=== PATIENT | male | born 1980 | race Caucasian/White ===

== ENCOUNTER 2019-10-28 15:56 | Outpatient (CLI) | payer OTHER ==
--- NOTE | 2019-10-28 17:53 | MRI Report ---
Reason: PAIN IN RT KNEE Procedure Date: 10/28/2019 Accession Number: [id number] / [id number] Procedure: MRI - Knee RT W/O CPT Code: Final Report FULL RESULT: EXAM: RIGHT KNEE MRI WITHOUT CONTRAST. EXAM DATE: 10/28/2019 05:25 PM. CLINICAL HISTORY: Pain in right knee. COMPARISON: None. TECHNIQUE: Multiplanar, multisequence T1-weighted and fluid-sensitive sequences of the knee without contrast. Other: None. FINDINGS: Bones: No fractures or subluxations. No marrow edema. No bone lesions. Articular Cartilage: Unremarkable. Medial Meniscus: The medial meniscus is intact. Lateral Meniscus: The lateral meniscus is intact. Cruciate Ligaments: The anterior and posterior cruciate ligaments are intact. Collateral Ligaments: The medial collateral and lateral collateral ligamentous structures are intact. Tendons: The quadriceps, patellar, semimembranosus, and popliteus tendons are unremarkable. Musculature: No edema or fatty atrophy. Other: No effusion. No popliteal cyst. No loose bodies. The medial and lateral retinacula are intact. The subcutaneous tissues and fat pads are unremarkable. IMPRESSION: No MRI abnormalities in the knee. RADIA
== END 2019-10-28 15:57 | disposition home or self-care (01) ==
LOC: DI 15:56
PROVIDERS: ATTEND Student in an Organized Health Care Education/Training Program
DX: M25.561 Pain in right knee (principal)

== ENCOUNTER 2020-10-12 10:49 | Emergency (ER) | payer OTHER ==
--- NOTE | 2020-10-12 11:39 | XRAY Report ---
PROCEDURE: Chest 1 View X-Ray INDICATIONS: Chest Pain TECHNIQUE: One view of the chest was acquired. COMPARISON: None FINDINGS: Surgical changes and devices: None. Lungs and pleura: No pleural effusions or pneumothorax. Lungs are clear. Mediastinum: Mediastinal contours appear normal. Heart size is normal. Bones and chest wall: No suspicious bony lesions. Overlying soft tissues appear unremarkable. IMPRESSION: Mildly reduced inspiratory volume, source of chest pain is not seen. Dominant O Reviewed by: Adrian Feliz MD on 10/12/2020 11:38 AM [facility] Approved by: Adrian Feliz MD on 10/12/2020 11:38 AM PST Station ID: [id number]
[2020-10-12 11:42] LABS: BASOPHILS # (AUTO) 0.1 10^3/uL (0.0-0.1); BASOPHILS % (AUTO) 0.7 %; EOSINOPHILS # (AUTO) 0.3 10^3/uL (0.0-0.7); EOSINOPHILS % (AUTO) 3.8 %; HGB - HEMOGLOBIN 14.8 g/dL (14.0-18.0); LYMPHOCYTES # (AUTO) 2.3 10^3/uL (1.5-3.5); LYMPHOCYTES % (AUTO) 28.5 %; MEAN CORPUSCULAR HEMOGLOBIN 29.9 pg (27.0-31.0); MEAN CORPUSCULAR HGB CONC 33.3 g/dL (32.0-36.0); MEAN CORPUSCULAR VOLUME 89.7 fL (80.0-94.0); MEAN PLATELET VOLUME 9.3 fL (7.4-11.4); MONOCYTES # (AUTO) 0.5 10^3/uL (0.0-1.0); MONOCYTES % (AUTO) 5.9 %; NEUTROPHILS # (AUTO) 4.9 10^3/uL (1.5-6.6); NEUTROPHILS % (AUTO) 60.7 %; PLT - PLATELET COUNT 367 10^3/uL (130-450); RED BLOOD COUNT 4.95 10^6/uL (4.70-6.10); RED CELL DISTRIBUTION WIDTH 12.7 % (12.0-15.0); WHITE BLOOD COUNT 8.1 x10^3/uL (4.8-10.8)
[2020-10-12 11:56] LABS: ALBUMIN 4.6 g/dL (3.2-5.5); ALBUMIN/GLOBULIN RATIO 1.6 (1.0-2.2); BILIRUBIN,TOTAL 0.8 mg/dL (0.2-1.0); CALCIUM 9.4 mg/dL (8.5-10.3); TOTAL PROTEIN 7.4 g/dL (6.7-8.2)
--- NOTE | 2020-10-12 13:05 | ED Physician Documentation ---
History of Present Illness - Stated complaint Stated Complaint: SHOULDER/HEAD PX - Chief complaint Chief Complaint: Cardiac - Additonal information Additional information: 40-year-old male presents to the emergency department for evaluation of chest pressure. He reports that for most of yesterday he did not feel well, he felt fatigued and" swimmy". He began to feel the same way today therefore [place] patient to return to the emergency department for further evaluation. He denies that he has chest pain right now. He describes yesterday's and this a.m. episode as chest pressure with radiation to the left arm. No nausea. He is a non-smoker, no history of diabetes. He does have a history of hypertension for which she was recently taking lisinopril but due to a history of migraines the flight surgeon changed him to propanolol. He states that yesterday his blood pressures were in the 140s to the 160s. His dad did have a significant coronary artery disease history however he was a diabetic. No family history of coronary artery disease in siblings or mom. Review of Systems Constitutional: reports: Fatigue Eyes: reports: Reviewed and negative Ears: reports: Reviewed and negative Nose: reports: Reviewed and negative Throat: reports: Reviewed and negative Cardiac: reports: Chest pain / pressure. denies: Palpitations, Pedal edema, Calf pain Respiratory: reports: Reviewed and negative GI: reports: Reviewed and negative : reports: Reviewed and negative Skin: reports: Reviewed and negative Musculoskeletal: reports: Reviewed and negative Neurologic: reports: Reviewed and negative. denies: Difficulty speaking, Near syncope, Syncope, Seizure Psychiatric: reports: Reviewed and negative PD PAST MEDICAL HISTORY - Allergies Allergies/Adverse Reactions: Allergies Allergy/AdvReac Type Severity Reaction Status Date / Time No Known Drug Allergies Allergy Verified 10/12/20 11:09 PD ED PE EXPANDED - General General: Alert, No acute distress, Well developed/nourished - Neck Neck: Supple w/out meningeal sx. No: Adenopathy - Cardiac Cardiac: Regular Rate, Regular Rhythm. No: Murmur Present, Radial strong equal, Femoral strong equal, Pedal strong equal, Cap refill < 2 sec - Respiratory Respiratory: Clear to ausultation lilibeth. No: Distress, Labored - Abdomen Abdomen: Normal Bowel sounds. No: Tender to palpation - Neuro Neuro: Alert and Oriented X 3, Normal Speech, CNII-XII intact - GCS Motor: Obeys Commands Verbal: Oriented Results - Vitals Vitals: Vital Signs - 24 hr 10/12/20 11:10 Temperature 36.3 C L Heart Rate 66 Respiratory 18 Rate Blood Pressure 152/89 H O2 Saturation 98 Oxygen O2 Source Room air - EKG (time done) 1119 Rate: Rate (enter#) (62) Rhythm: NSR [place]: Normal Intervals: Normal NC Ischemia: ST elevation c/w repol Compare to prior EKG: Old EKG unavailable Computer interpretation: Agree with computer - Labs Labs: Laboratory Tests 10/12/20 10/12/20 10/12/20 11:36 11:36 11:36 WBC 8.1 RBC 4.95 Hgb 14.8 Hct 44.4 MCV 89.7 MCH 29.9 MCHC 33.3 RDW 12.7 Plt Count 367 MPV 9.3 Neut # (Auto) 4.9 Lymph # (Auto) 2.3 [place] # (Auto) 0.5 Eos # (Auto) 0.3 Baso # (Auto) 0.1 Absolute Nucleated RBC 0.00 Nucleated RBC % 0.0 Sodium 140 Potassium 4.5 Chloride 106 Carbon Dioxide 24 Anion Gap 10.0 BUN 14 Creatinine 1.0 Estimated GFR (MDRD) 83 L Glucose 87 Calcium 9.4 Total Bilirubin 0.8 AST 25 ALT 34 Alkaline Phosphatase 104 Troponin I High Sens 2.7 Total Protein 7.4 Albumin 4.6 Globulin 2.8 Albumin/Globulin Ratio 1.6 Lipase 46 - Rads (name of study) cxr Radiology: Final report received (Mildly reduced inspiratory volume, source of chest pain is not seen) PD MEDICAL DECISION MAKING - ED course Complexity details: reviewed results, re-evaluated patient, considered differential, d/w patient ED course: 40-year-old male presents the emergency department for evaluation of fatigue and chest pain that began yesterday. He has no active chest pain while here in the emergency department. He has had no fevers or cough. He did recently change his blood pressure medication from lisinopril to propanolol secondary to history of migraines. On exam today he repairs remarkably well. With nonconcerning vitals. EKG is sinus and consistent with early repole. Chest x-ray does not show any acute focal infiltrates. Patient is not hypoxic and has no complaints of shortness of breath. High-sensitivity troponin is negative. The majority of his lab work is unrevealing. His heart score today is 3 making him low risk for a MACE. I advised patient that he needs close [place] and do recommend outpatient stress test and echocardiogram. We will screen this gentleman for COVID-19 though he is essentially asymptomatic with the exception of reported fatigue. He will remain in quarantine until the results are known Departure - Departure Disposition: 01 Home, Self Care Clinical Impression: Chest pressure Condition: Stable Record reviewed to determine appropriate education?: Yes Comments: Janes I hope that you are feeling better soon. Today your labs, chest x-ray and EKG are all essentially unremarkable. As we discussed does not appear that you are having a heart attack, however with your history of high blood pressure and heart disease in your dad your flight surgeon should arrange for you to have an outpatient echocardiogram and stress test. We are screening you for COVID-19 today. We will not notify you unless the result is positive. You should remain in quarantine until your results are known. You may view the results on the [facility] portal. If you develop chest pain, have uncontrolled vomiting any fainting episodes please return to the ER for a second evaluation
[2020-10-12 13:15] VITALS: BP 126/94
== END 2020-10-12 13:18 | disposition home or self-care (01) ==
LOC: ED 10:49
DX: R07.89 Other chest pain (principal); Z20.828 Contact with and (suspected) exposure to other viral communicable diseases
CPT/HCPCS: 36415; 80053; 83690; 84484; 85025; 93005; 99284

== ENCOUNTER 2020-11-09 09:55 | Outpatient (CLI) | payer OTHER ==
--- NOTE | 2020-11-09 11:47 | MRI Report ---
PROCEDURE: BRAIN W/WO INDICATIONS: MIGRAINE W/AURA CONTRAST: 9 cc Gadavist TECHNIQUE: Noncontrast axial T1 spin echo, axial T2 fast spin echo, sagittal and axial FLAIR, coronal T2 fast sp in echo, axial gradient echo, axial diffusion and ADC through the brain. After the administration of contrast, axial and coronal T1 spin echo with fat saturation through the brain. COMPARISON: None. FINDINGS: Image quality: Excellent. CSF spaces: Basal cisterns are patent. No extra-axial fluid collections. Ventricles are normal in size and shape. Brain: No midline shift. No intracranial bleeds or masses. No abnormal intracranial enhancement. There is cerebral volume loss for age. There are a few tiny FLAIR hyperintensities in the periventric ular white matter, likely early chronic microvascular ischemic change. The brainstem appears normal. Diffusion-weighted images demonstrate no acute ischemic insults. No chronic ischemic insults. Norm al intravascular flow voids are present. Skull and face: Calvarial marrow is normal in signal. Orbits appear normal. Sinuses: Sinuses and mastoids appear clear. IMPRESSION: No intracranial mass lesion, abnormal intracranial enhancement, or other acute finding. No abnormality to explain symptoms. Reviewed by: Oni Nelson MD on 11/09/2020 11:45 AM PST Approved by: Oni Nelson MD on 11/09/2020 11:45 AM PST Station ID: [id number]
== END 2020-11-09 09:56 | disposition home or self-care (01) ==
LOC: DI 09:55
DX: G43.109 Migraine with aura, not intractable, without status migrainosus (principal)
CPT/HCPCS: 70553; A9585

== ENCOUNTER 2020-11-14 20:48 | Emergency (ER) | payer OTHER ==
--- NOTE | 2020-11-14 21:00 | ED Physician Documentation ---
PD HPI LOWER EXT INJURY - Stated complaint Stated Complaint: RT ANKLE INJ - Chief complaint Chief Complaint: Ext Problem - History obtained from History obtained from: Patient - Additional information Additional information: Running yesterday morning and inverted the right ankle with pain and swelling laterally. He is able to walk and bear weight. No other injuries. Review of Systems Constitutional: reports: Reviewed and negative Ears: reports: Reviewed and negative Nose: reports: Reviewed and negative Throat: reports: Reviewed and negative Cardiac: reports: Reviewed and negative PD PAST MEDICAL HISTORY - Past Surgical History Past Surgical History: No - Allergies Allergies/Adverse Reactions: Allergies Allergy/AdvReac Type Severity Reaction Status Date / Time No Known Drug Allergies Allergy Verified 10/12/20 11:09 - Social History Does the pt smoke?: No Smoking Status: Never smoker Does the pt drink ETOH?: No Does the pt have substance abuse?: No - Immunizations Immunizations are current?: Yes - POLST Patient has POLST: No PD ED PE NORMAL - Vitals Vital signs reviewed: Yes - General General: Alert and oriented X 3, No acute distress - Extremities Extremities: Other (He is tender and swollen over both the lateral malleolus and lower a right lateral ATFL. There is significant bruising over the lateral foot. No significant tenderness at the fifth metatarsal nor at the proximal fibula.) - Neuro Neuro: Alert and oriented X 3, Normal speech Results - Vitals Vitals: Vital Signs - 24 hr 11/14/20 20:52 Temperature 36.5 C Heart Rate 72 Respiratory 16 Rate Blood Pressure 155/97 H O2 Saturation 98 Oxygen O2 Source Room air PD MEDICAL DECISION MAKING - ED course ED course: 40-year-old gentleman with isolated 36-hour old right ankle injury from an inversion injury while running. Three-view x-ray of the right ankle interpreted contemporaneously by me is negative for fracture. He is placed in an Aircast. Declined pain medication. Departure - Departure Disposition: 01 Home, Self Care Clinical Impression: Right ankle sprain Qualifiers: Encounter type: initial encounter Involved ligament of ankle: anterior talofibular ligament Qualified Code(s): S93.491A - Sprain of other ligament of right ankle, initial encounter Condition: Good Record reviewed to determine appropriate education?: Yes Instructions: ED Sprain Ankle W X Ray Comments: Recheck with your physician in 1 week if not better. Return for new or worseni ng symptoms. Tylenol or ibuprofen as needed for pain.
[2020-11-14 21:35] VITALS: BP 149/99
--- NOTE | 2020-11-14 21:50 | XRAY Report ---
PROCEDURE: Ankle 3 View RT INDICATIONS: ankle inj TECHNIQUE: 3 views of the ankle were acquired. COMPARISON: None. FINDINGS: Bones: No fractures or dislocations. Ankle mortise is normally aligned. No suspicious bony lesions . Suspect small bone island in the calcaneus. Soft tissues: No tibiotalar joint effusion. Achilles tendon appears normal. IMPRESSION: No acute osseous abnormality. Reviewed by: Manuel Pederson MD on 11/14/2020 9:49 PM [facility] Approved by: Manuel Pederson MD on 11/14/2020 9:49 PM [facility] Station ID: [id number]
== END 2020-11-14 21:37 | disposition home or self-care (01) ==
LOC: ED 20:48
DX: S93.491A Sprain of other ligament of right ankle, initial encounter (principal); X50.1XXA Overexertion from prolonged static or awkward postures, initial encounter; Y93.02 Activity, running
CPT/HCPCS: 99283

== ENCOUNTER 2022-06-29 08:24 | Outpatient (CLI) | payer OTHER ==
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
[2022-06-29 09:33] VITALS: BP 113/76
== END 2022-06-29 08:25 | disposition home or self-care (01) ==
LOC: SC 08:24
PROVIDERS: ATTEND Nurse Practitioner Family
DX: R06.83 Snoring (principal); G47.8 Other sleep disorders; R06.81 Apnea, not elsewhere classified; R51.9 Headache, unspecified; G47.10 Hypersomnia, unspecified; R53.83 Other fatigue; I10 Essential (primary) hypertension; F32.A Depression, unspecified; E66.3 Overweight; Z68.26 Body mass index [BMI] 26.0-26.9, adult; Z87.891 Personal history of nicotine dependence
CPT/HCPCS: 99203; 99212

== ENCOUNTER 2022-07-06 20:38 | Outpatient (CLI) | payer OTHER | END 2022-07-06 20:39 | disposition home or self-care (01) | LOC: SC 20:38 | PROVIDERS: ATTEND Nurse Practitioner Family | DX: G47.33 Obstructive sleep apnea (adult) (pediatric) (principal); Z68.26 Body mass index [BMI] 26.0-26.9, adult | CPT/HCPCS: 95810 ==

== ENCOUNTER 2022-07-19 08:27 | Outpatient (CLI) | payer OTHER ==
[2022-07-19 09:24] VITALS: BP 126/80
--- NOTE | 2022-07-19 09:24 | SLEEP CARE CONSULTATION ---
Information from patient questionnaire entered by Kayla Gordon. I have reviewed and concur with the information entered by Kayla Gordon. This document represents the service I personally performed and the decisions made by , Lorin Garza ARNP. History of Present Illness Service Date and Time: 07/19/2022826 Initial [place] Sleepiness Scale score: 9 (06/28/2022) Current [place] Sleepiness Scale score: 9 (07/19/22) Additional HPI information: BLANKA FAJARDO returns for follow up and results of the recently performed polysomnography. I explained the pathophysiology behind obstructive sleep apnea. We then spent quite a bit of time discussing different treatment options. For mild obstructive sleep apnea, surgery and oral appliance are alternatives to nasal CPAP therapy but in moderate or severe cases, nasal CPAP is the most effective a nd reliable treatment. Because apnea is primarily in supine position, then positional management therapy could be effective. Methods discussed such as positioning with pillows to prevent supine sleep. I reviewed the impact of weight changes on sleep apnea and strongly recommended losing weight. Patient counseled not drink alcohol less than 4 hours before bedtime as it can increase snoring and apnea. Patient was cautioned about risks of drowsy driving until sleepiness symptoms resolve. Patient denies drowsy driving. Sleep Study - Results Type of Sleep Study: Polysomnography (DONE 07/06/22) Prior sleep studies: No Polysomnography/Home Sleep Study results: IMPRESSION: The quality of the study is good. The patient had normal sleep efficiency. The sleep architecture was normal as well. Respiratory monitoring showed mild obstructive sleep apnea-h ypopnea (AHI = 9.5) associated with oxyhemoglobin desaturation and mild hypoxia ([place]oria oxygen saturation of 84%). The respiratory events occurred almost exclusively during supine sleep (supine AHI = 26.5; non-supine = 0.61). Snore was light in intensity. There was no significant periodic leg movement of sleep. Cardiac rhythm was normal sinus rhythm without significant arrhythmia. No abnormal behavior (parasomnia) observed during the night. Allergies and Home Medications Home medication list reviewed: Yes (Amlodapine 2.5 mg, started last night) Allergy and home medication list: Allergies No Known Drug Allergies Allergy (Verified 10/12/20 11:09) Review of Systems Review of systems same as previous: Yes (no changes) Physical Exam Vital signs obtained and entered by: EMELIA AVILA Blood Pressure: 126/80 (left arm ) Cuff size: regular Heart Rate: 57 O2 Saturation: 96 Height: 6 ft 1 in Weight: 217 lb Body Mass Index: 28.6 BMI Classification: Overweight Impression and Plan 1. Obstructive Sleep Apnea-Hypopnea Syndrome, mild, with lowest oxygen saturation of 84%. Obviously this is the cause of the patients symptoms of unrefreshed sleep, and excessive daytime sleepiness. Positive pressure therapy could benefit hypertension, anxiety, depression, mood disorder and asthma. Since patients apnea is primarily in supine position, patient advised to try positional therapy and agreed with plan. He is also advised to lose weight as this will reduce snoring and apnea. An oral appliance can also be used for snoring but often is not covered by insurance. Follow up is scheduled for one month to check effectiveness and if further evaluation indicated such a repeat study in supine position only to see if additional treatment indicated. * Positional therapy * Attempt to lose weight. * Avoid alcohol consumption near bedtime. * Avoid supine sleep * Return in one month. I will assess response to therapy at that time. Counseling Topics: Sleeping position, Weight loss health impact Visit Type: In Office Time Spent with Patient (minutes): 20 Provider Statement: I spent 100% of the Face to Face Visit with the patient with greater than 50% spent counseling the patient and coordination of care.
== END 2022-07-19 08:28 | disposition home or self-care (01) ==
LOC: SC 08:27
PROVIDERS: ATTEND Nurse Practitioner Family
DX: G47.33 Obstructive sleep apnea (adult) (pediatric) (principal); E66.3 Overweight; Z68.28 Body mass index [BMI] 28.0-28.9, adult
CPT/HCPCS: 99212; 99213

== ENCOUNTER 2022-08-09 09:43 | Outpatient (CLI) | payer OTHER ==
[2022-08-09 10:27] VITALS: BP 118/82
--- NOTE | 2022-08-09 10:27 | SLEEP CARE CONSULTATION ---
Information from patient questionnaire entered by Mily Perkins MA. I have reviewed and concur with the information entered by Mily Perkins MA. This document represents the service I personally performed and the decisions made by Greg perez Caren J, ARNP. History of Present Illness Service Date and Time: 08/09/2022 0943 Previous diagnosis: Mild, Obstructive Sleep Apnea-Hypopnea Syndrome AHI: 9.5 (in 2021) Reason for follow up: other (Positional therapy) Prior sleep studies: No Type of Sleep Study: Polysomnography (DONE 07/06/22) HPI additional information: BLANKA FAJARDO was diagnosed to have mild, AHI 9.5, obstructive sleep apnea- hypopnea syndrome and returned today for Positional therapy one month follow-up. Sleep Study - Results Type of Sleep Study: Polysomnography (DONE 07/06/22) Prior sleep studies: No CPAP Compliance Data Compliance data discussion: He states that he has been able to stay non-supine for sleep without difficult. He obtained a Slumberbump. He is more conscious of turning over but it is not interrupting sleep. Subjective On therapy, patient: denies: sleeping better, awakening more refreshed, more rested overall, drowsiness while driving Initial [place] Sleepiness Scale score: 9 (06/28/2022) Current [place] Sleepiness Scale score: 3 Allergies and Home Medications Known drug allergies: No (ENVIROMENTAL ONLY) Drug allergies reviewed: Yes (NKDA) Home medication list reviewed: Yes (Amlodipine 2.5 mg added) Allergy and home medication list: Allergies No Known Drug Allergies Allergy (Verified 10/12/20 11:09) Physical Exam Vital signs obtained and entered by: JOSE JUAN CARTWRIGHT Blood Pressure: 118/82 Cuff size: regular Heart Rate: 61 O2 Saturation: 98 Height: 6 ft 0.5 in Weight: 210 lb Body Mass Index: 28.0 BMI Classification: Overweight Impression and Plan 1. Obstructive Sleep Apnea-Hypopnea Syndrome, mild. Patient has not been seeing improvement of his daytime sleepiness with using positional therapy. He has been being successful in staying off is his back with a Slumberbump positional belt. He is just not sleeping well or waking up rested overall with positional therapy. He requests to start CPAP therapy. The patient will be started on nasal autoCPAP therapy with pressure set at 4-15 cmH2O. Compliance guidelines also reviewed. A copy of compliance guidelines will be given for reference at check out. Because the apnea is more severe supine, I instructed to continue positional therapy until able to start CPAP use. He voiced understanding. * Nasal auto CPAP therapy, pressure at 4-15 cm H2O. * Attempt to lose weight. * Avoid alcohol consumption near bedtime. * Avoid supine sleep until using CPAP. * The patient is again cautioned about driving until sleepiness completely resolves. * Return one month after CPAP obtained. I will assess response to therapy and compliance at that time. Counseling Topics: Weight loss health impact Visit Type: In Office Time Spent with Patient (minutes): 22 Provider Statement: I spent 100% of the Face to Face Visit with the patient with greater than 50% spent counseling the patient and coordination of care.
== END 2022-08-09 09:44 | disposition home or self-care (01) ==
LOC: SC 09:43
PROVIDERS: ATTEND Nurse Practitioner Family
DX: G47.33 Obstructive sleep apnea (adult) (pediatric) (principal); E66.3 Overweight; Z68.28 Body mass index [BMI] 28.0-28.9, adult
CPT/HCPCS: 99212; 99213